=== PATIENT | male | born 1985 | race Caucasian/White ===

== ENCOUNTER 2025-01-25 09:11 | Outpatient (CLI) | payer OTHER, SELFPAY ==
--- NOTE | ~2025-01-25 | MR_ITS ---
MRI of the right knee Clinical history: Pain Technique: Coronal proton density and proton density-weighted images, sagittal proton-density and T2 fat-sat images, and axial proton-density fat-saturated images were acquired. Findings: Anterior and posterior cruciate ligaments are intact. Medial collateral ligament and the la teral collateral ligament, but intact. Popliteus tendon is intact. Medial and lateral menisci are intact, without evidence of tear. There is patchy high-grade chondral malacia the patellar apex with subchondral areas of cystic change . Femoral trochlear cartilage is intact. There is 9 x 8 mm osteochondral lesion versus grade 4 chondr al lesion at the central aspect of the medial femoral condyle with subchondral reactive marrow edema. Extensor mechanism is intact. Minimal joint effusion present. Minimal Hendrickson's cyst present. Impression: 9 x 8 mm osteochondral lesion versus grade 4 chondral lesion at the central aspect of the medial femo ral condyle with subchondral reactive marrow edema. 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 Minimal joint effusion and minimal Hendrickson's cyst. Reviewed, dictated and finalized at [facility]. Impression: 9 x 8 mm osteochondral lesion versus grade 4 chondral lesion at the central asp ect of the medial femoral condyle with subchondral reactive marrow edema. 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 Minimal joint effusion and minimal Hendrickson's cyst.
--- OUTSIDE RECORDS SUMMARY | 2025-01-25 09:16 | XMS_ITS | Referral Summary ---
Author Organization [facility] Office Building [facility] Address [address] [place] [address] Care Team Providers Care Religious Leader Name Role Phone Unknown, Notinfile Primary Care Provider Unavail able Encounters Date Type Department Care Team Description 12/30/2024 Telephone [facility] Orthopedic and Sports Medicine [address] [place] [phone] Joe Banda PA 12/14/2024 Orders Only [facility] Orthopedic and Sports Medicine [address] [place] [phone] Joe Banda PA Acute pain of right knee (Primary Dx); Effusion of right knee; Instability of right knee joint 12/14/2024 9:45 AM CDT Ancillary Procedure [facility] Imaging at [address] [phone] Right knee pain, unspecified chronicity 12/14/2024 9:40 AM CDT Ancillary Procedure [facility] Imaging at [address] [phone] Right knee pain, unspecified chronicity 12/14/2024 9:30 AM CDT Office Visit [facility] Orthopedic and Sports Medicine [address] [place] [phone] Joe Banda PA Acute pain of right knee (Primary Dx); Effusion of right knee; Instability of right knee joint from Last 3 Months Allergies No known active allergies Medications HYDROcodone-acetam inophen (NORCO) 5-325 mg per tabletIndications: Pain 01/07/2017 Active Active Problems No known active problems Social History Tobacco Use Types Packs/Day Years Used Date Smoking Tobacco: Never AUDIT-C Answer Date Recorded Q1: How often do you have a drink containing alc ohol? Monthly or less 12/14/2024 Average Number of Drinks Not on file Frequency of Binge Drinking Not on file 08/2024 Sex and Gender Information Value Date Recorded Sex Assigned at Not on file Legal Sex Male 12:48 PM CDT Gender Identity Not on file Sexual Orientation Not on file Last Filed Vital Signs Vital Sign Reading Time Taken Comments Blood Pressure 149/84 12/14/2024 9:49 AM CDT Pulse 74 12/14/2024 9:49 AM CDT Temperature - - Respiratory Rate - - Oxygen Saturation - - Inhaled Oxygen Concentration - - Weight 83 kg (183 lb) 12/14/2024 9:49 AM CDT Height 170.2 cm (5' 7) 12/14/2024 9:49 AM CDT Body Mass Index 28.66 12/14/2024 9:49 AM CDT Plan of Treatment Not on file Procedures Procedure Name Priority Date/Time Associated Diagnosis Comments XR KNEE RIGHT 4 OR MORE VIEWS Schedule Routine, Read Routine (OP Routine) 12/14/2024 9:45 AM CDT Right knee pain, unspecified chronicity XR PELVIS 1 OR 2 VIEWS Schedule Routine, Read Routine (OP Routine) 12/14/2024 9:45 AM CDT Right knee pain, unspecified chronicity from Last 3 Months Results * XR Knee Right 4 or More Views (12/14/2024 9:45 AM CDT) Anatomical Region Laterality Modality Lower Extremities, Knee Right Digital Radiography Narrative 12/14/2024 9:48 AM CDT Four views of the right knee are negative for acute fracture dislocation or osseous lesion. Well-maintained joint spaces are noted with mild sclerotic change noted in the medial compartment. No significant osteophyte formations noted throughout the knee. Soft tissues are unremarkable. us Joe Yen [facility] IMG XR PROCEDURES Final Res ult * XR Pelvis 1 or 2 Views (12/14/2024 9:45 AM CDT) Anatomical Region Laterality Modality Body, Pelvis N/A Digital Radiogra phy Narrative 12/14/2024 9:48 AM CDT A weight-bearing AP view of the pelvis taken today in the office demonstrate no evidence of fracture or acute bony abnormality . There is no bone lesions noted. There is no radiopaque foreign body. There are no significant degenerative changes noted in the femoral acetabular joints. There are bilateral CAM lesions noted with MIKEY signs noted. Joe WATT IMG XR PROCEDURES Final Res ult from Last 3 Months Insurance [facility] CHOICE PLUS [facility] H[facility]/PPO Address: [place] [address] [employer] Care Teams Religious Leader Relationship Specialty Start Date End Date Unknown, Notinfile PCP - General 01/09/17
--- OUTSIDE RECORDS SUMMARY | 2025-01-25 09:16 | XMS_ITS | Clinical Summary ---
Author Organization [facility] Medical Office Building B Address [address] [place] [address] Care Team Providers Care Educational Technician Name Role Phone Unknown, Notinfile Primary Care Provider Unavail able Allergies No known active allergies Medications HYDROcodone-acetam inophen (NORCO) 5-325 mg per tabletIndications: Pain 01/07/2017 Active Active Problems No known active problems Encounters Date Type Department Care Team Description 12/30/2024 Telephone [facility] Orthopedic and Sports Medicine [address] [place] [phone] Joe Banda PA 12/14/2024 9:45 AM CDT Ancillary Procedure [facility] Imaging at [address] [phone] Right knee pain, unspecified chronicity 12/14/2024 9:40 AM CDT Ancillary Procedure [facility] Imaging at [address] [phone] Right knee pain, unspecified chronicity 12/14/2024 9:30 AM CDT Office Visit [facility] Orthopedic and Sports Medicine [address] [place] [phone] Joe Banda PA Acute pain of right knee (Primary Dx); Effusion of right knee; Instability of right knee joint 12/14/2024 Orders Only [facility] Orthopedic and Sports Medicine [address] [place] [phone] Joe Banda PA Acute pain of right knee (Primary Dx); Effusion of right knee; Instability of right knee joint from Last 3 Months Family History Medical History Relation Name Comments Hypertension Father Relation Name Status Comments Father Social History Tobacco Use Types Packs/Day Years [...] on file Sexual Orientation Not on file Obstetrics History Last Filed Vital Signs Vital Sign Reading [...] 12/14/2024 9:49 AM CDT Plan of Treatment Health Maintenance Due Date Last Done Comments Depression Screening 1987 Hepatitis C Screening 1987 Varicella Vaccines (1 of 2 - 13+ 2-dose series) 02/06/2000 Hepatitis B Screening 2005 Regular Well Visit/Exam 18-64 2005 DTaP/Tdap/Td Vaccine (2 - Td or Tdap) 07/15/2021 07/15/2011 Influenza Vaccine (Season Ended) 2025 HPV Vaccines Aged Out No longer eligi ble based on patient's age to complete this topic Pneumococcal vaccine <65 Aged Out No longer eligible based on patient's age to complete this topic Procedures Procedure Name Priority Date/Time Associated Diagnosis [...] throughout the knee. Soft tissues are unremarkable. Joe WATT IMG XR PROCEDURES Final Res ult * [...] Res ult from Last 3 Months Insurance [facility] CHOICE PLUS [employer] Care Teams Educational Technician Relationship Specialty Start Date End Date Unknown, Notinfile PCP - General 01/09/17
--- OUTSIDE RECORDS SUMMARY | 2025-01-25 09:16 | XMS_ITS | Clinical Summary ---
Author Organization [facility] [place] Address [address] [place] [address] Care Team Providers Care Train System Operator Name Role Phone Jona See MD Primary Care Provider Allergies No known active allergies Medications multivitamin (DAILY-ESMER) tablet Take 1 Tablet by mouth daily. Active Active Problems Problem Noted Date Diagnosed Date Chewing tobacco dependence 08/05/2019 Gastroesophageal reflux disease without esophagi tis 04/16/2019 Elevated LDL cholesterol level 04/16/2019 Immunizations Immunization Administration Dates Next Due (ADACEL/BOOSTRIX)(10 YR UP) TDAP VACCINE, 0.5ML, IM 07/15/2011 Family History Medical History Relation Name Comments No Known Problems Daughter Hypertension Father Dustin Hwang Heart Attack Maternal Grandfather Prudencio Aquino Hypertension Maternal Grandfather Prudencio Aquino Pass ed away from Heart attack at age 73 Dementia Maternal Grandmother Nona Aquino Unknown Maternal Grandmother Nona Aquino Demen tia at age 91 No Known Problems Mother Unknown Paternal Grandfather Unknown Paternal Grandmother No Known Problems Sister No Known Problems Son Relation Name Status Comments Daughter Alive Father Dustin Hwang Alive Maternal Grandfather Prudencio Aquino Maternal Grandmother Nona Aquino Alive Mother Alive Paternal Grandfather Paternal Grandmother Sister Alive Son Alive Social History Tobacco Use Types Packs/Day Years Used Date Smoking Tobacco: Light Smoker Cigarettes Smokeless Tobacco: Current Comments:Very Light Use . Wi ll only chew when working outside. Go through 1 can / month during summer. Alcohol Use Standard Drinks/Week Comments Yes 4 (1 standard drink = 0.6 oz pur e alcohol) Socially Drink Sex and Gender Information Value Date Recorded Sex Assigned at Male 04/16/2024 10:26 AM CDT Legal Sex Male 2:15 PM CDT Gender Identity Male 04/16/2024 10:26 AM CDT Sexual Orientation Straight 04/16/2024 10 :26 AM CDT Last Filed Vital Signs Vital Sign Reading Time Taken Comments Blood Pressure 116/80 12/14/2022 7:20 AM CDT Pulse 62 01/30/2021 12:58 PM CDT Temperature 36.8 C (98.3 F) 01/30/2021 12:58 PM CDT Respiratory Rate 16 01/30/2021 12:58 PM CDT Oxygen Saturation 98% 01/30/2021 12:58 PM CDT Inhaled Oxygen Concentration - - Weight 83.5 kg (184 lb) 12/14/2022 7:20 AM CDT Height 170.2 cm (5' 7) 12/14/2022 7:20 AM CDT Body Mass Index 28.82 12/14/2022 7:20 AM CDT Plan of Treatment Health Maintenance Due Date Last Done Comments HEPATITIS B VACCINES (1 of 3 - 19+ 3-dose series) 2006 DTAP/TDAP/TD VACCINES (2 - T d or Tdap) 07/15/2021 07/15/2011 INFLUENZA VACCINE (#1) 2025 04/16/2019 HPV VACCINES Aged Out No longer eligi ble based on patient's age to complete this topic Insurance [employer] Care Teams Train System Operator Relationship Specialty Start Date End Date Jona See MD [address] [place] [address] PCP - General Family Practice 12/14/22
--- OUTSIDE RECORDS SUMMARY | 2025-01-25 09:16 | XMS_ITS | Patient Health Record ---
Author Organization [facility] [employer] Address [address] [address] Support Name Relationship Address Phone BHAVIN CARNES Guarantor Unknown [phone] Reason For Referral No Information Plan Of Treatment No Information
== END 2025-01-25 09:12 | disposition home or self-care (01) ==
PROVIDERS: PCP Family Medicine; Visit Provider Physician Assistant
DX: M25.461 Effusion, right knee (principal); M25.361 Other instability, right knee; M22.41 Chondromalacia patellae, right knee; M17.11 Unilateral primary osteoarthritis, right knee; M71.21 Synovial cyst of popliteal space [Baker], right knee
CPT/HCPCS: 73721